=== PATIENT | male | born 1965 | race Caucasian/White ===

== ENCOUNTER 2016-08-30 19:09 | Emergency (ER) | payer MEDICAID ==
[~2016-08-30] VITALS: Ht 175.3 cm; Wt 86.2 kg
[2016-08-30 19:39] VITALS: BP 127/71
== END 2016-08-30 23:15 | disposition home or self-care (01) ==
LOC: ER 19:12
DX: M54.5 Low back pain (principal); V43.52XA Car driver injured in collision with other type car in traffic accident, initial encounter; Y93.89 Activity, other specified; Y92.488 Other paved roadways as the place of occurrence of the external cause; Y99.8 Other external cause status
CPT/HCPCS: 71010; 72040; 72074; 72100; 72128; 99284; A4606; Z7610